=== PATIENT | male | born 1990 | race African-American/Black ===

== ENCOUNTER 2019-11-15 21:55 | Emergency (ER) | payer SELFPAY ==
[~2019-11-15] VITALS: Ht 172.7 cm; Wt 70.0 kg
[2019-11-16] MEDS ORDERED: ACETAMINOPHEN 500MG TABLET PO SCH (01:00)
[2019-11-16] MEDS ORDERED: IBUPROFEN 800MG TABLET PO SCH (01:00)
[2019-11-16 01:25] VITALS: BP 151/96
== END 2019-11-16 01:37 | disposition home or self-care (01) ==
LOC: ER 21:55
DX: M54.5 Low back pain (principal); F12.10 Cannabis abuse, uncomplicated; Z98.890 Other specified postprocedural states
CPT/HCPCS: 99283

== ENCOUNTER → 2020-01-12 | Emergency (ER) | payer MEDICAID | END | disposition left against medical advice (07) | LOC: ER 17:54 | DX: Z53.21 Procedure and treatment not carried out due to patient leaving prior to being seen by health care provider (principal) ==

== ENCOUNTER 2020-01-14 12:14 | Emergency (ER) | payer MEDICAID ==
[~2020-01-14] VITALS: Ht 165.1 cm; Wt 75.0 kg
[2020-01-14 13:42] VITALS: BP 147/84
== END 2020-01-14 13:43 | disposition home or self-care (01) ==
LOC: ER 12:14
DX: L70.9 Acne, unspecified (principal); R21 Rash and other nonspecific skin eruption; F12.10 Cannabis abuse, uncomplicated
CPT/HCPCS: 99283

== ENCOUNTER 2020-02-13 18:08 | Emergency (ER) | payer MEDICAID ==
[~2020-02-13] VITALS: Ht 172.7 cm; Wt 70.0 kg
[2020-02-13] MEDS ORDERED: PENICILLIN G BENZATHINE 2,400,000 UNITS/4ML SYR IM ONE (20:30)
[2020-02-13 21:33] VITALS: BP 132/78
== END 2020-02-13 21:34 | disposition home or self-care (01) ==
LOC: ER 18:08
DX: Z20.2 Contact with and (suspected) exposure to infections with a predominantly sexual mode of transmission (principal); L70.9 Acne, unspecified
CPT/HCPCS: 86592; 96372; 99283; J0561

== ENCOUNTER 2020-05-21 14:49 | Emergency (ER) | payer SELFPAY ==
[~2020-05-21] VITALS: Ht 172.7 cm; Wt 73.0 kg
[2020-05-21 15:21] VITALS: BP 133/79
== END 2020-05-21 19:09 | disposition left against medical advice (07) ==
LOC: ER 14:49
DX: Z76.0 Encounter for issue of repeat prescription (principal); Z53.21 Procedure and treatment not carried out due to patient leaving prior to being seen by health care provider